=== PATIENT | female | born 1990 | race Caucasian/White ===

== ENCOUNTER 2022-01-11 19:44 | Outpatient (CLI) | payer OTHER ==
[~2022-01-11 19:44] MED LIST: COLACE 100MG C100 MG PO; IBUPROFEN600 MG PO; LORTAB 5-325 M1 EACH PO; NAPROSYN500 MG PO; PENVEE K 500 M500 MG PO; RANITIDINE HCL150 MG PO; VISTARIL25 MG PO; ZOLOFT100 MG PO
[2022-01-11 23:54] LABS: HEMOGLOBIN 9.4 gm/dl (12.3-15.3); RED BLOOD COUNT 3.16 M/UL (4.00-5.10); WHITE BLOOD COUNT 7.2 K/UL (4.5-11.0)
[2022-01-12] MEDS ORDERED: PROCARDIA 10 MG10 MG GT (19:25)
== END 2022-01-12 01:12 | disposition home or self-care (01) ==
LOC: GENOP 19:44
PROVIDERS: Obstetrics & Gynecology
DX: O46.92 Antepartum hemorrhage, unspecified, second trimester (principal); O99.891 Other specified diseases and conditions complicating pregnancy; R10.2 Pelvic and perineal pain; Z3A.26 26 weeks gestation of pregnancy
CPT/HCPCS: 81001; 85025; 96372; J0696; J7120

== ENCOUNTER 2022-01-12 11:05 | Outpatient (CLI) | payer OTHER ==
[2022-01-12] MEDS ORDERED: PROCARDIA 10 MG10 MG GT (19:25)
== END 2022-01-12 19:44 | disposition home or self-care (01) ==
LOC: GENOP 11:05
PROVIDERS: Obstetrics & Gynecology
DX: O23.42 Unspecified infection of urinary tract in pregnancy, second trimester (principal); O47.02 False labor before 37 completed weeks of gestation, second trimester; O99.332 Smoking (tobacco) complicating pregnancy, second trimester; F17.290 Nicotine dependence, other tobacco product, uncomplicated; Z3A.26 26 weeks gestation of pregnancy
CPT/HCPCS: 80307; 81001; 96360; 96372; J0696; J0702

== ENCOUNTER 2022-02-06 21:29 | Observation (INO) | payer OTHER ==
[~2022-02-06 21:29] MED LIST changes: +PROCARDIA 10 MG10 MG GT
== END 2022-02-07 11:29 | disposition home or self-care (01) ==
LOC: GENOP 21:29 → OB 23:21
PROVIDERS: ADMIT Obstetrics & Gynecology
DX: O47.03 False labor before 37 completed weeks of gestation, third trimester (principal); Z3A.30 30 weeks gestation of pregnancy
CPT/HCPCS: 59025; 81001; 96360; 96361; 96372; 96374; G0378; J0702; J2300; J2405

== ENCOUNTER 2022-02-14 03:09 | Outpatient (CLI) | payer OTHER | END 2022-02-14 04:33 | disposition home or self-care (01) | LOC: GENOP 03:09 | DX: O99.891 Other specified diseases and conditions complicating pregnancy (principal); N89.8 Other specified noninflammatory disorders of vagina; O99.333 Smoking (tobacco) complicating pregnancy, third trimester; F17.290 Nicotine dependence, other tobacco product, uncomplicated; Z3A.31 31 weeks gestation of pregnancy | CPT/HCPCS: 81001; 83518; G0463 ==